=== PATIENT | female | born 1980 | race Caucasian/White ===

== ENCOUNTER → 2017-11-09 | Outpatient (CLI) | payer SELFPAY ==
[~2017-11-09] MED LIST: COLACE 100100 MG/CAP PO; INDERAL40 MG PO; MOBIC 7.5MG7.5 MG PO; MOBIC15 MG PO; REMERON45 MG PO; RISPERDAL 1M1 MG/TAB PO; TEGRETOL 2200 MG/TA1 PO; WELLBUTRIN 75MG75 MG PO; ZOFRAN 4MG T4 MG/TAB PO
== END ==
LOC: ZCOL.LAB 14:43
DX: Z01.812 Encounter for preprocedural laboratory examination (principal); Z86.14 Personal history of Methicillin resistant Staphylococcus aureus infection

== ENCOUNTER 2017-11-10 08:43 | Day surgery (SDC) | payer SELFPAY ==
[~2017-11-10] VITALS: Ht 167.6 cm; Wt 71.7 kg
[2017-11-10] MEDS ORDERED: WELLBUTRIN 75MG75 MG PO (09:29)
[2017-11-10] MEDS ORDERED: TEGRETOL 2200 MG/TA1 PO ×2 (09:29)
[2017-11-10] MEDS ORDERED: INDERAL40 MG PO (09:30)
[2017-11-10] MEDS ORDERED: MOBIC 7.5MG7.5 MG PO (09:30)
[2017-11-10] MEDS ORDERED: REMERON45 MG PO (09:30)
[2017-11-10] MEDS ORDERED: RISPERDAL 1M1 MG/TAB PO (09:31)
[2017-11-10 10:57] VITALS: BP 99/62; PULSE 104; TEMP 98.5
[2017-11-10 13:26] VITALS: BP 111/55; PULSE 72
[2017-11-10 13:41] VITALS: BP 101/57; PULSE 67
[2017-11-10 13:56] VITALS: BP 95/56; PULSE 62
[2017-11-10] MEDS ORDERED: MOBIC15 MG PO (14:33)
[2017-11-10] MEDS ORDERED: COLACE 100100 MG/CAP PO (14:33)
[2017-11-10] MEDS ORDERED: ZOFRAN 4MG T4 MG/TAB PO (14:34)
== END 2017-11-10 14:45 | disposition home or self-care (01) ==
LOC: SDCO 08:43
DX: S52.202A Unspecified fracture of shaft of left ulna, initial encounter for closed fracture (principal); S52.302A Unspecified fracture of shaft of left radius, initial encounter for closed fracture; F17.210 Nicotine dependence, cigarettes, uncomplicated; F32.9 Major depressive disorder, single episode, unspecified
CPT/HCPCS: J0690; J1100; J2250; J2405; J2704; J2795; J3010; J7120

== ENCOUNTER 2018-02-01 15:20 | Emergency (ER) | payer OTHER ==
[~2018-02-01] VITALS: Ht 167.6 cm; Wt 66.4 kg
[2018-02-01 15:21] VITALS: BP 132/87
[2018-02-01] MEDS ORDERED: PERCOCET 325 MG1 TA2 PO (16:36)
[2018-02-01 16:47] VITALS: PULSE 105; TEMP 98.1
== END 2018-02-01 16:50 | disposition home or self-care (01) ==
LOC: COL.ER 15:20
DX: M25.551 Pain in right hip (principal); M25.561 Pain in right knee; F17.210 Nicotine dependence, cigarettes, uncomplicated; Z98.890 Other specified postprocedural states; V43.52XA Car driver injured in collision with other type car in traffic accident, initial encounter
CPT/HCPCS: J1885; J2360